=== PATIENT | female | born 1990 | race African-American/Black ===

== ENCOUNTER 2022-04-25 21:59 | Emergency (ER) | payer OTHER ==
[~2022-04-25] VITALS: Ht 162.6 cm; Wt 81.6 kg
[2022-04-25] MEDS ORDERED: OXYCODONE/APAP 5-325 MG TABLET PO ONE (23:15)
[2022-04-25] MEDS ORDERED: IV NS 1000 ML 1,000 ML IV ONE (23:15)
[2022-04-25] MEDS ORDERED: PROCHLORPERAZINE EDISYLATE 10 MG/2 ML VIAL IV ONE (23:15)
[2022-04-25] MEDS ORDERED: OXYCODONE/APAP 5-325 MG TABLET ONE (23:35)
[2022-04-25] MEDS ORDERED: PROCHLORPERAZINE EDISYLATE 10 MG/2 ML VIAL ONE (23:35)
[2022-04-25 23:57] LABS: CREATININE 1.2 mg/dL (0.6-1.3); POTASSIUM 3.6 mmol/L (3.5-5.1)
[2022-04-25 23:58] LABS: HEMATOCRIT 34.7 % (31.2-41.9); MEAN CORPUSCULAR HEMOGLOBIN 30.4 uug (24.7-32.8); MEAN CORPUSCULAR VOLUME 89.9 fL (75.5-95.3); PLATELET COUNT (AUTO) 247 K/uL (179-408)
--- NOTE | 2022-04-26 00:30 | NUR ---
Patient states "I feel better now."
[2022-04-26] MEDS ORDERED: PROC10TA29 PO (00:40)
[2022-04-26] MEDS ORDERED: OXYC-128 PO (00:40)
--- NOTE | 2022-04-26 00:53 | NUR ---
IV removed. Catheter intact and site benign. Pressure and 4x4 gauze applied to site. No bleeding noted.
--- NOTE | 2022-04-26 00:55 | NUR ---
Patient discharged to home in stable condition with [facility] taking patient home. Written and verbal after care instructions given. Patient verbalizes understanding of instructions. Stressed follow up or return to ER for worsening s/s.
[2022-04-26 00:56] VITALS: BP 133/76
== END 2022-04-26 00:56 | disposition home or self-care (01) ==
LOC: ER 22:03
DX: B34.9 Viral infection, unspecified (principal); J45.909 Unspecified asthma, uncomplicated; R00.0 Tachycardia, unspecified
CPT/HCPCS: 99284; 96374; 71045; 96361; 80048; 85025; 87400; 36415; J0780; J7040; A4663